=== PATIENT | male | born 1975 | race Caucasian/White ===

== ENCOUNTER 2018-07-24 07:52 | Day surgery (SDC) | payer BC ==
[~2018-07-24] VITALS: Ht 177.8 cm; Wt 106.6 kg
[~2018-07-24 07:52] MED LIST: CEFAZOLIN SOD 2 GM in D5W 50 ML IV ONE
[2018-07-24] MEDS ORDERED: KETOROLAC TROMETHAMINE 30 MG VIAL IVP PRN (11:00)
[2018-07-24] MEDS ORDERED: ONDANSETRON HCL 4 MG/2 ML VIAL IVP PRN (11:00)
[2018-07-24] MEDS ORDERED: fentaNYL CITRATE/PF 100 MCG/2 ML AMP IVP PRN ×2 (11:00)
[2018-07-24] MEDS ORDERED: NS IRRIG SOLN 1000 ML IR ONE (11:11)
[2018-07-24] MEDS ORDERED: LR 1,000 ML IV.SOLN IV ONE (11:11)
[2018-07-24] MEDS ORDERED: KETOROLAC TROMETHAMINE 30 MG VIAL IVP ONE (11:11)
[2018-07-24] MEDS ORDERED: BUPIVACAINE /PF 0.25% 30 ML VIAL INJ ONE (11:11)
[2018-07-24] MEDS ORDERED: SEVOFLURANE 15 MIN GAS INH ONE (11:11)
[2018-07-24] MEDS ORDERED: ROCURONIUM BROMIDE 10 MG/ML (ZEMURON) IV ONE (11:11)
[2018-07-24] MEDS ORDERED: GLYCOPYRROLATE 0.2 MG/ML VIAL IJ ONE (11:11)
[2018-07-24] MEDS ORDERED: MIDAZOLAM HCL 5 MG/5 ML VIAL IVP ONE (11:11)
[2018-07-24] MEDS ORDERED: NEOSTIGMINE METHYLSULFATE 1 MG/ML, 10 ML VIAL IVP ONE (11:11)
[2018-07-24] MEDS ORDERED: ONDANSETRON HCL 4 MG/2 ML VIAL IVP ONE (11:11)
[2018-07-24] MEDS ORDERED: fentaNYL CITRATE/PF 100 MCG/2 ML AMP IVP ONE (11:11)
[2018-07-24] MEDS ORDERED: NS 1000 ML IV.SOLN IV ONE (11:11)
[2018-07-24 16:26] VITALS: BP_SYST 139
== END 2018-07-24 17:20 | disposition home or self-care (01) ==
LOC: SDS 07:52 → SMU 07:52 → SDS 17:20
PROVIDERS: ATTEND Surgery
DX: K40.20 Bilateral inguinal hernia, without obstruction or gangrene, not specified as recurrent (principal)
CPT/HCPCS: 49650; C1727; C1781; J0690; J1885; J2250; J2405; J2710; J3010; J3490 ×2; J7030; J7060; J7120; S2900

== ENCOUNTER 2022-08-26 16:58 | Emergency (ER) | payer BC ==
[~2022-08-26] VITALS: Ht 175.3 cm; Wt 109.3 kg
[2022-08-26 17:00] VITALS: BP_SYST 131
--- NOTE | 2022-08-26 17:05 | NUR ---
Patient triaged and placed in waiting room. VSS and patient appears in no acute distress at this time. Accompanied by spouse, awaiting available bed, and MD notified of need for MSE. Notified MD Last, and MD spoke and assessed pt. No further orders at this time.
[2022-08-26] MEDS ORDERED: MED4 PO (17:21)
[2022-08-26] MEDS ORDERED: POLY15DR31 RIGHT EYE (17:21)
[2022-08-26 17:34] VITALS: BP_SYST 148
--- NOTE | 2022-08-26 17:36 | NUR ---
Patient given written and verbal discharge instructions and verbalizes understanding. ER MD discussed with patient the results and treatment provided. Patient in stable condition. ID arm band removed. Rx given by MD. Patient educated on pain management and to follow up with PMD. Pain Scale . Opportunity for questions provided and answered. Medication side effect fact sheet provided. Discharged by Dr Last.
== END 2022-08-26 17:34 | disposition home or self-care (01) ==
LOC: SED 16:58
DX: G51.0 Bell's palsy (principal); Z79.899 Other long term (current) drug therapy
CPT/HCPCS: 99283

== ENCOUNTER 2023-01-30 06:01 | Emergency (ER) | payer BC ==
[~2023-01-30] VITALS: Ht 175.3 cm; Wt 111.1 kg
[~2023-01-30 06:01] MED LIST changes: -CEFAZOLIN SOD 2 GM in D5W 50 ML IV ONE; +MED4 PO; +POLY15DR31 RIGHT EYE
[2023-01-30 06:26] VITALS: BP_SYST 141; PULSE 125; RESP 24; TEMP 98; O2SAT 100
[2023-01-30] MEDS ORDERED: CEPH250C PO (06:35)
[2023-01-30] MEDS ORDERED: cephALEXin 500 MG CAPSULE PO ONE (06:45)
[2023-01-30 06:48] LABS: BASOPHILS # (AUTO) 0.1 K/uL (0.0-0.2); BASOPHILS % (AUTO) 0.8 % (0.0-2.0); EOSINOPHILS # (AUTO) 0.2 K/uL (0.0-0.4); EOSINOPHILS % (AUTO) 1.2 % (0.0-4.0); HEMATOCRIT 41.1 % (36-54); HEMOGLOBIN 14.1 g/dL (14.0-18.0); LYMPHOCYTES # (AUTO) 2.4 K/uL (1.0-5.5); LYMPHOCYTES % (AUTO) 18.7 % (20.5-51.5); MEAN CORPUSCULAR HEMOGLOBIN 33 pg (27-31); MEAN CORPUSCULAR HGB CONC 34 % (32-36); MEAN CORPUSCULAR VOLUME 96 fL (79.0-98.0); NEUTROPHILS # (AUTO) 9.3 K/uL (1.8-7.7); NEUTROPHILS % (AUTO) 71.3 % (40.0-70.0); PLATELET COUNT (AUTO) 277 K/uL (130-430); RED BLOOD CELL COUNT(AUTO) 4.27 MIL/uL (4.2-6.2); RED CELL DISTRIBUTION WIDTH 13.9 % (9.0-15.0)
[2023-01-30 07:05] LABS: PROTHROMBIN TIME 10.5 SECS (9.5-12.5)
[2023-01-30 07:38] VITALS: BP_SYST 159; PULSE 100; RESP 24; TEMP 97.3; O2SAT 97
== END 2023-01-30 07:40 | disposition home or self-care (01) ==
LOC: SED 06:01
DX: R04.0 Epistaxis (principal); J44.9 Chronic obstructive pulmonary disease, unspecified; I10 Essential (primary) hypertension; F17.200 Nicotine dependence, unspecified, uncomplicated; Z79.899 Other long term (current) drug therapy
CPT/HCPCS: 36415; 85025; 85610-TC; 85730-TC; 99284

== ENCOUNTER 2023-02-01 08:12 | Emergency (ER) | payer BC ==
[~2023-02-01] VITALS: Ht 175.3 cm; Wt 111.1 kg
[~2023-02-01 08:12] MED LIST changes: +CEPH250C PO
[2023-02-01 08:18] VITALS: BP_SYST 128; PULSE 119; TEMP 97.2; O2SAT 97
[2023-02-01] MEDS ORDERED: cloNIDine HCL 0.1 MG TABLET PO ONE (08:45)
[2023-02-01] MEDS ORDERED: PHENYLEPHRINE HCL 1% NASAL 15 ML NASPR NS ONE (09:00)
[2023-02-01 09:35] VITALS: BP_SYST 121; PULSE 119; TEMP 97.2; O2SAT 97
== END 2023-02-01 09:34 | disposition home or self-care (01) ==
LOC: SED 08:12
DX: R04.0 Epistaxis (principal); J44.9 Chronic obstructive pulmonary disease, unspecified; I10 Essential (primary) hypertension; Z79.899 Other long term (current) drug therapy
CPT/HCPCS: 99283